=== PATIENT | female | born 1950 | race Caucasian/White ===

== ENCOUNTER 2017-12-09 18:21 | Inpatient (IN) | payer MEDICARE ==
[~2017-12-09] VITALS: Ht 165.1 cm; Wt 95.5 kg
[~2017-12-09 18:21] MED LIST: ONDA4TAB12 PO
[2017-12-09] MEDS ORDERED: furosemide 10 MG/1 ML 10ml inj IV ONE (18:35)
[2017-12-09] MEDS ORDERED: nitroGLYCERIN 0.4mg/hour patch TD ONE (18:35)
[2017-12-09] MEDS ORDERED: albuterol 2.5 MG/3 ML nebule CONTNEB PRN (18:35)
[2017-12-09 19:21] LABS: ABG BASE EXCESS 5.1 mmol/L (-2.0-3.0); ABG HCO3 27.1 mmol/L (22.0-26.0); ABG OXYGEN SATURATION 98.4 % (95-98); ABG PCO2 (T) 30.8 mmHg (32.0-45.0); ABG PH (T) 7.559 (7.350-7.450); ABG PO2 (T) 125.8 mmHg (83-108); ALLEN'S TEST Positive; FCOHb 0.5 % (0.5-1.5); FLOW 4 L/min; FO2Hb 97.9 % (94-100); PATIENT TEMPERATURE 36.3; RESPIRATORY RATE (OBSERVED) 20 b/min; TOTAL HEMOGLOBIN 13.1 G/dl (12.0-16.0)
[2017-12-09 19:22] LABS: BASOPHILS % (AUTO) 0.3 % (0-1); EOSINOPHILS # (AUTO) 0.1 X10'3 (0-0.9); EOSINOPHILS % (AUTO) 0.8 % (0-6); HEMATOCRIT 35.8 % (35.0-45.0); HEMOGLOBIN 12.5 g/dl (12.0-16.0); LYMPHOCYTES # (AUTO) 3.1 X10'3 (1.1-4.8); LYMPHOCYTES % (AUTO) 24.5 % (21-51); MEAN CORPUSCULAR HEMOGLOBIN 31.7 PG (27.0-31.0); MEAN CORPUSCULAR VOLUME 90.8 FL (78-98); MEAN PLATELET VOLUME 8.1 FL (7.4-10.4); MONOCYTES # (AUTO) 0.6 X10'3 (0-0.9); MONOCYTES % (AUTO) 5.2 % (2-12); NEUTROPHILS # (AUTO) 8.7 X10'3 (1.8-7.7); NEUTROPHILS % (AUTO) 69.2 % (42-75); PLATELET COUNT 330 X10'3 (140-440); RED BLOOD COUNT 3.94 X10'6 (4.20-5.60); RED CELL DISTRIBUTION WIDTH 13.9 % (11.5-14.5); WHITE BLOOD COUNT 12.5 X10'3 (4.5-11.0)
[2017-12-09 19:34] LABS: PARTIAL THROMBOPLASTIN TIME 23 SECONDS (22-32); PROTHROMBIN TIME 10.1 SECONDS (9.0-12.0)
[2017-12-09 19:48] LABS: ALANINE AMINOTRANSFERASE 56 U/L (12-78); ALBUMIN 3.3 G/DL (3.4-5.0); ALBUMIN/GLOBULIN RATIO 0.8 (1.1-1.5); ALKALINE PHOSPHATASE 143 IU/L (46-116); ANION GAP 13 (8-16); ASPARTATE AMINO TRANSFERASE 24 U/L (10-37); BILIRUBIN,TOTAL 0.4 MG/DL (0.1-1.0); BLOOD UREA NITROGEN 29 MG/DL (7-18); BUN/CREATININE RATIO 26.4 (6.6-38.0); CALCIUM 10.6 MG/DL (8.5-10.1); CHLORIDE 98 MMOL/L (99-107); GLUCOSE 185 MG/DL (70-104); SODIUM 139 MMOL/L (135-145); TOTAL CARBON DIOXIDE 28.2 MMOL/L (24-32); TOTAL PROTEIN 7.2 G/DL (6.4-8.2); eGFR 49 ML/MIN
[2017-12-09 19:52] LABS: POTASSIUM 2.4 MMOL/L (3.5-5.1)
[2017-12-09] MEDS ORDERED: azithromycin 250mg tablet PO ONE (20:00)
[2017-12-09] MEDS ORDERED: CefTRIAXone 2gm/NS 100ml IVPB 100 ML IV ONE (20:00)
[2017-12-09] MEDS ORDERED: magnesium 4gm in 100ml NS 100 ML IV PRN (21:50)
[2017-12-09] MEDS ORDERED: acetaminophen 325mg tablet PO PRN (21:50)
[2017-12-09] MEDS ORDERED: potassium Cl 40MEQ/NS 500ml 500 ML IV PRN ×2 (21:50)
[2017-12-09] MEDS ORDERED: magnesium Cl slow-release 64mg tablet PO PRN (21:50)
[2017-12-09] MEDS ORDERED: magnesium 2GM in 50ml NS 50 ML IV PRN (21:50)
[2017-12-09] MEDS ORDERED: ondansetron/PF 4mg/2ml inj IV PRN (21:50)
[2017-12-09] MEDS ORDERED: dextrose 50%-water 50ml dispensing syringe IV PRN ×2 (21:55)
[2017-12-09] MEDS ORDERED: dextrose ORAL solution 15 GM/59 ML bottle PO PRN ×2 (21:55)
[2017-12-09] MEDS ORDERED: MESSAGE TO PHARMACY PO ONE (21:55)
[2017-12-09] MEDS ORDERED: glucagon, human recombinant 1mg kit SUBCUT PRN (21:55)
[2017-12-09 22:18] LABS: CLARITY,URINE CLEAR (Clear); COLOR,URINE STRAW (Yellow); GLUCOSE, URINE NEGATIVE (Neg); KETONES,URINE NEGATIVE (Neg); LEUKOCYTE ESTERASE ,URINE NEGATIVE (Neg); NITRITES, URINE NEGATIVE (Neg); OCCULT BLOOD,URINE TRACE-LYSED (Neg); PH,URINE 7.5 (4.8-8.0); PROTEIN,URINE NEGATIVE (Neg); UROBILINOGEN,URINE 0.2 E.U/dL (0.2-1.0)
[2017-12-09 22:20] LABS: UA COLLECTION TYPE FOLEY CATH
[2017-12-09 22:26] LABS: AMORPHOUS PHOSPHATES 1+; BACTERIA,URINE NONE SEEN /HPF (Neg); MUCUS STRANDS NONE SEEN /LPF (Neg); RBC,URINE 0-2 /HPF (0-2); SQUAMOUS EPITHELIAL CELL,UR MODERATE /LPF (FEW); WBC,URINE 0-4 /HPF (0-4)
[2017-12-09] MEDS: traZODone 50mg tablet PO SCH (22:32)
[2017-12-09] MEDS: clonazePAM 0.5mg tablet PO SCH (22:32)
[2017-12-09] MEDS ORDERED: potassium 10mEq/100ml NS w/LIDOcaine (10mg/bag) IV ONE (22:45)
[2017-12-09] MEDS ORDERED: magnesium 2GM in 50ml NS 50 ML IV ONE (22:45)
[2017-12-09] MEDS ORDERED: potassium Cl 20 mEq SR tablet PO ONE (22:45)
[2017-12-09 23:14] LABS: MAGNESIUM 1.7 MG/DL (1.5-2.4)
[2017-12-09] MEDS: ipratropium/albuterol 3ml nebule NEB PRN (23:34)
[2017-12-10 02:00] VITALS: BP 136/89
[2017-12-10] MEDS: potassium Cl 20 mEq SR tablet PO PRN ×4 (04:15→20:15)
[2017-12-10 05:00] VITALS: BP 110/56
[2017-12-10] MEDS: clonazePAM 0.5mg tablet PO SCH (06:57)
[2017-12-10] MEDS ORDERED: azithromycin 250mg tablet PO SCH (08:00)
[2017-12-10] MEDS: K and/or MAG REPLACEMENT MC SCH (08:00)
[2017-12-10 10:00] VITALS: BP 113/50
[2017-12-10] MEDS: oxybutynin 5mg tablet PO SCH ×2 (10:03→20:16)
[2017-12-10] MEDS: heparin, porcine 5000 units/ml vial SQ SCH ×2 (10:04→20:17)
[2017-12-10] MEDS: insulin Lispro (HumaLOG) vial - multi-dose SQ SCH ×3 (10:07→19:14)
[2017-12-10 10:36] LABS: BASOPHILS % (AUTO) 0.3 % (0-1); EOSINOPHILS # (AUTO) 0.2 X10'3 (0-0.9); EOSINOPHILS % (AUTO) 1.4 % (0-6); HEMATOCRIT 32.8 % (35.0-45.0); HEMOGLOBIN 11.4 g/dl (12.0-16.0); LYMPHOCYTES # (AUTO) 1.8 X10'3 (1.1-4.8); LYMPHOCYTES % (AUTO) 14.7 % (21-51); MEAN CORPUSCULAR HEMOGLOBIN 31.2 PG (27.0-31.0); MEAN CORPUSCULAR HGB CONC 34.7 % (33.0-36.5); MONOCYTES # (AUTO) 0.7 X10'3 (0-0.9); MONOCYTES % (AUTO) 5.4 % (2-12); NEUTROPHILS # (AUTO) 9.4 X10'3 (1.8-7.7); NEUTROPHILS % (AUTO) 78.2 % (42-75); PLATELET COUNT 314 X10'3 (140-440); RED BLOOD COUNT 3.64 X10'6 (4.20-5.60); RED CELL DISTRIBUTION WIDTH 14.5 % (11.5-14.5)
[2017-12-10 10:53] LABS: ALBUMIN 3.1 G/DL (3.4-5.0); ANION GAP 13 (8-16); BLOOD UREA NITROGEN 28 MG/DL (7-18); BUN/CREATININE RATIO 22.2 (6.6-38.0); CALCIUM 10.1 MG/DL (8.5-10.1); CHLORIDE 98 MMOL/L (99-107); CREATININE 1.26 MG/DL (0.40-0.90); GLUCOSE 288 MG/DL (70-104); MAGNESIUM 2.2 MG/DL (1.5-2.4); SODIUM 139 MMOL/L (135-145); TOTAL CARBON DIOXIDE 28.2 MMOL/L (24-32); eGFR 42 ML/MIN
[2017-12-10 10:55] LABS: POTASSIUM 2.9 MMOL/L (3.5-5.1)
[2017-12-10] MEDS ORDERED: OXYB5TAB11 PO (12:29)
[2017-12-10] MEDS ORDERED: SERT100T PO (12:29)
[2017-12-10] MEDS ORDERED: FURO-150 PO (12:29)
[2017-12-10] MEDS ORDERED: CLOP75TA35 PO (12:30)
[2017-12-10] MEDS ORDERED: FAMO20TA8 PO (12:31)
[2017-12-10] MEDS ORDERED: ROPI1TAB2 PO (12:34)
[2017-12-10] MEDS ORDERED: PRAV40TA3 PO (12:34)
[2017-12-10] MEDS ORDERED: ZAR2.5T PO (12:35)
[2017-12-10] MEDS ORDERED: MAGN400C PO (12:37)
[2017-12-10] MEDS ORDERED: POTA2VIA5 (12:38)
[2017-12-10] MEDS ORDERED: ZIPR40CA2 PO (12:39)
[2017-12-10] MEDS ORDERED: METF500T3 PO (12:40)
[2017-12-10] MEDS ORDERED: CLON-527 PO (12:41)
[2017-12-10] MEDS: acetaminophen 325mg tablet PO PRN (17:13)
[2017-12-10 18:00] VITALS: BP 117/62
[2017-12-10] MEDS: budesonide 0.5mg/2ml UD nebule IH SCH (19:41)
[2017-12-10] MEDS: ipratropium/albuterol 3ml nebule NEB PRN (19:41)
[2017-12-10] MEDS: ziprasidone 20mg capsule PO SCH (20:16)
[2017-12-10] MEDS: clonazePAM 1mg tablet PO SCH (20:16)
[2017-12-10] MEDS: traZODone 50mg tablet PO SCH (20:16)
[2017-12-10] MEDS ORDERED: atorvastatin 10mg tablet PO SCH (21:00)
[2017-12-10] MEDS ORDERED: insulin glargine (Lantus) pen - multi-dose SQ SCH (21:00)
[2017-12-10] MEDS ORDERED: ROPINIRole 1mg tablet PO SCH (21:00)
[2017-12-10 22:00] VITALS: BP 115/58
[2017-12-10] MEDS: levoFLOXACIN 500mg tablet PO SCH ×2 (22:00→22:26)
[2017-12-11] MEDS: acetaminophen 325mg tablet PO PRN ×2 (01:37→12:24)
[2017-12-11 05:00] VITALS: BP_SYST 152; BP_SYST 96; BP_DIAS 47; BP_DIAS 59
[2017-12-11 06:42] LABS: BASOPHILS % (AUTO) 0.3 % (0-1); EOSINOPHILS # (AUTO) 0.1 X10'3 (0-0.9); HEMATOCRIT 34.7 % (35.0-45.0); HEMOGLOBIN 12.3 g/dl (12.0-16.0); LYMPHOCYTES # (AUTO) 2.5 X10'3 (1.1-4.8); LYMPHOCYTES % (AUTO) 25.3 % (21-51); MEAN CORPUSCULAR HEMOGLOBIN 31.9 PG (27.0-31.0); MEAN CORPUSCULAR HGB CONC 35.3 % (33.0-36.5); MEAN CORPUSCULAR VOLUME 90.2 FL (78-98); MEAN PLATELET VOLUME 7.8 FL (7.4-10.4); MONOCYTES # (AUTO) 0.7 X10'3 (0-0.9); MONOCYTES % (AUTO) 7.2 % (2-12); NEUTROPHILS # (AUTO) 6.6 X10'3 (1.8-7.7); NEUTROPHILS % (AUTO) 66.2 % (42-75); PLATELET COUNT 314 X10'3 (140-440); RED BLOOD COUNT 3.85 X10'6 (4.20-5.60); RED CELL DISTRIBUTION WIDTH 14.4 % (11.5-14.5); WHITE BLOOD COUNT 9.9 X10'3 (4.5-11.0)
[2017-12-11 07:07] LABS: ALBUMIN 3.1 G/DL (3.4-5.0); ANION GAP 10 (8-16); BLOOD UREA NITROGEN 18 MG/DL (7-18); BUN/CREATININE RATIO 17.5 (6.6-38.0); CALCIUM 10.1 MG/DL (8.5-10.1); CHLORIDE 102 MMOL/L (99-107); CREATININE 1.03 MG/DL (0.40-0.90); GLUCOSE 133 MG/DL (70-104); MAGNESIUM 2.2 MG/DL (1.5-2.4); SODIUM 141 MMOL/L (135-145); TOTAL CARBON DIOXIDE 29.2 MMOL/L (24-32); eGFR 53 ML/MIN
[2017-12-11] MEDS: K and/or MAG REPLACEMENT MC SCH (07:33)
[2017-12-11] MEDS: potassium Cl 20 mEq SR tablet PO PRN ×2 (07:46→12:24)
[2017-12-11] MEDS: ziprasidone 20mg capsule PO SCH (07:47)
[2017-12-11] MEDS: clonazePAM 1mg tablet PO SCH (07:47)
[2017-12-11] MEDS: oxybutynin 5mg tablet PO SCH (07:47)
[2017-12-11] MEDS: heparin, porcine 5000 units/ml vial SQ SCH (07:47)
[2017-12-11] MEDS ORDERED: famotidine 20mg tablet PO SCH (08:00)
[2017-12-11] MEDS ORDERED: sertraline 50mg tablet PO SCH (08:00)
[2017-12-11] MEDS ORDERED: magnesium oxide 400mg tablet PO SCH (08:00)
[2017-12-11] MEDS ORDERED: clopidogrel 75mg tablet PO SCH (08:00)
[2017-12-11] MEDS: insulin Lispro (HumaLOG) vial - multi-dose SQ SCH ×2 (09:04→13:44)
[2017-12-11 10:00] VITALS: BP 137/65
[2017-12-11] MEDS ORDERED: acyclovir 5% 2 GM cream TP SCH (13:00)
[2017-12-11] MEDS ORDERED: acyclovir 5% ointment 5gm TP SCH (13:00)
[2017-12-11] MEDS ORDERED: FURO-150 PO (13:25)
[2017-12-11] MEDS ORDERED: POTA20TA10 PO (13:25)
[2017-12-11] MEDS ORDERED: METF500T4 PO (13:25)
[2017-12-11] MEDS ORDERED: ACYC15OI7 TP (13:25)
[2017-12-11] MEDS ORDERED: AZI25OT PO (13:27)
[2017-12-11] MEDS: budesonide 0.5mg/2ml UD nebule IH SCH (13:34)
== END 2017-12-11 15:31 | disposition home or self-care (01) | DRG 872 ==
LOC: ER 18:21 → ED HOLD 21:50 → ORTHO 4S 12-10 02:06
PROVIDERS: ADMIT Family Medicine; ATTEND Internal Medicine
DX: A41.9 Sepsis, unspecified organism (principal); E87.4 Mixed disorder of acid-base balance; I50.9 Heart failure, unspecified; E11.65 Type 2 diabetes mellitus with hyperglycemia; Z99.81 Dependence on supplemental oxygen; J44.1 Chronic obstructive pulmonary disease with (acute) exacerbation; J44.0 Chronic obstructive pulmonary disease with (acute) lower respiratory infection; J20.9 Acute bronchitis, unspecified; E87.6 Hypokalemia; E78.5 Hyperlipidemia, unspecified; F31.9 Bipolar disorder, unspecified; N28.9 Disorder of kidney and ureter, unspecified; R91.1 Solitary pulmonary nodule; E78.00 Pure hypercholesterolemia, unspecified; Z88.0 Allergy status to penicillin; Z87.891 Personal history of nicotine dependence
CPT/HCPCS: 36415; 36600; 71045; 71250; 80048; 80053; 81001; 82803; 82948; 83036; 83605; 83735; 83880; 84132; 84484; 85018; 85025; 85610; 85730; 87040; 87070; 87502; 87503; 92616; 93005; 94640; 94760; 96374; 97116; 97162; 97530; 99285; A4315; A6449; J0696; J1644; J1815; J1940; J3475; J3480; J7626

== ENCOUNTER 2017-12-14 12:45 | Emergency (ER) | payer MEDICARE ==
[~2017-12-14] VITALS: Ht 165.1 cm; Wt 95.5 kg
[~2017-12-14 12:45] MED LIST changes: +ACYC15OI7 TP; +AZI25OT PO; +CLON-527 PO; +CLOP75TA35 PO; +FAMO20TA8 PO; +FURO-150 PO; +MAGN400C PO; +METF500T4 PO; -ONDA4TAB12 PO; +OXYB5TAB11 PO; +POTA20TA10 PO; +PRAV40TA3 PO; +ROPI1TAB2 PO; +SERT100T PO; +ZIPR40CA2 PO
[2017-12-14 15:05] VITALS: BP 152/82
== END 2017-12-14 15:07 | disposition home or self-care (01) ==
LOC: ER 12:45
DX: R06.02 Shortness of breath (principal); Z88.0 Allergy status to penicillin; J44.9 Chronic obstructive pulmonary disease, unspecified; E11.9 Type 2 diabetes mellitus without complications; E78.00 Pure hypercholesterolemia, unspecified; Z79.84 Long term (current) use of oral hypoglycemic drugs; Z79.899 Other long term (current) drug therapy; Z60.2 Problems related to living alone
CPT/HCPCS: 71045; 93005; 99284

== ENCOUNTER 2018-03-05 09:03 | Emergency (ER) | payer MEDICARE ==
[~2018-03-05] VITALS: Ht 565.3 cm; Wt 100.0 kg
[~2018-03-05 09:03] MED LIST changes: -ACYC15OI7 TP; -AZI25OT PO; +DESV50TA20; +DOCU-28 PO; -FURO-150 PO; -MAGN400C PO; +METF1000 PO; -METF500T4 PO; -POTA20TA10 PO; +PRAM0.253 PO; +TRAZ-146 PO; -ZIPR40CA2 PO
[2018-03-05] MEDS ORDERED: IBUP-1984 PO (09:57)
== END 2018-03-05 10:08 | disposition home or self-care (01) ==
LOC: ER 09:03
DX: M79.601 Pain in right arm (principal); E78.00 Pure hypercholesterolemia, unspecified; J44.9 Chronic obstructive pulmonary disease, unspecified; E11.9 Type 2 diabetes mellitus without complications; I50.9 Heart failure, unspecified; Z60.2 Problems related to living alone; Z88.0 Allergy status to penicillin; Z79.84 Long term (current) use of oral hypoglycemic drugs; Z79.899 Other long term (current) drug therapy
CPT/HCPCS: 73080; 73110; 99284

== ENCOUNTER 2018-09-25 13:08 | Emergency (ER) | payer MEDICARE ==
[~2018-09-25] VITALS: Ht 165.1 cm; Wt 104.5 kg
[~2018-09-25 13:08] MED LIST changes: +AZIT250T2 PO; +SULF1TAB49 PO; +TAM75C PO; -TRAZ-146 PO; +TRAZ-219 PO
[2018-09-25] MEDS ORDERED: ipratropium/albuterol 3ml nebule NEB ONE (13:20)
[2018-09-25] MEDS ORDERED: LORazepam 1 MG tablet PO ONE (13:20)
[2018-09-25 13:30] LABS: BASOPHILS # (AUTO) 0.1 X10'3 (0-0.2); BASOPHILS % (AUTO) 0.6 % (0-1); EOSINOPHILS # (AUTO) 0.1 X10'3 (0-0.9); EOSINOPHILS % (AUTO) 1.2 % (0-6); HEMATOCRIT 42.6 % (35.0-45.0); HEMOGLOBIN 13.9 g/dl (12.0-16.0); LYMPHOCYTES # (AUTO) 1.7 X10'3 (1.1-4.8); LYMPHOCYTES % (AUTO) 15.7 % (21-51); MEAN CORPUSCULAR HEMOGLOBIN 29.9 PG (27.0-31.0); MEAN CORPUSCULAR HGB CONC 32.6 % (33.0-36.5); MEAN CORPUSCULAR VOLUME 91.5 FL (78-98); MEAN PLATELET VOLUME 7.7 FL (7.4-10.4); MONOCYTES # (AUTO) 0.6 X10'3 (0-0.9); MONOCYTES % (AUTO) 5.7 % (2-12); NEUTROPHILS # (AUTO) 8.4 X10'3 (1.8-7.7); NEUTROPHILS % (AUTO) 76.8 % (42-75); PLATELET COUNT 379 X10'3 (140-440); RED BLOOD COUNT 4.65 X10'6 (4.20-5.60); RED CELL DISTRIBUTION WIDTH 14.6 % (11.5-14.5)
[2018-09-25 13:51] LABS: ALANINE AMINOTRANSFERASE 57 U/L (12-78); ALBUMIN 3.6 G/DL (3.4-5.0); ALBUMIN/GLOBULIN RATIO 0.9 (1.1-1.5); ALKALINE PHOSPHATASE 191 IU/L (46-116); ANION GAP 12 (8-16); ASPARTATE AMINO TRANSFERASE 13 U/L (10-37); BILIRUBIN,TOTAL 0.2 MG/DL (0.1-1.0); BLOOD UREA NITROGEN 17 MG/DL (7-18); BUN/CREATININE RATIO 14.7 (6.6-38.0); CALCIUM 10.2 MG/DL (8.5-10.1); CHLORIDE 103 MMOL/L (99-107); CREATININE 1.16 MG/DL (0.40-0.90); GLUCOSE 104 MG/DL (70-104); POTASSIUM 4.8 MMOL/L (3.5-5.1); SODIUM 139 MMOL/L (135-145); TOTAL CARBON DIOXIDE 24.4 MMOL/L (24-32); TOTAL PROTEIN 7.5 G/DL (6.4-8.2); eGFR 46 ML/MIN
[2018-09-25 13:55] LABS: PARTIAL THROMBOPLASTIN TIME 23 SECONDS (22-32); PROTHROMBIN TIME 10.1 SECONDS (9.0-12.0)
[2018-09-25 13:59] LABS: MAGNESIUM 2.3 MG/DL (1.5-2.4); TROPONIN I < 0.04 NG/ML (0.0-0.05)
[2018-09-25 14:31] LABS: CLARITY,URINE CLEAR (Clear); COLOR,URINE YELLOW (Yellow); GLUCOSE, URINE NEGATIVE (Neg); KETONES,URINE NEGATIVE (Neg); LEUKOCYTE ESTERASE ,URINE NEGATIVE (Neg); NITRITES, URINE NEGATIVE (Neg); OCCULT BLOOD,URINE NEGATIVE (Neg); PROTEIN,URINE NEGATIVE (Neg); UA COLLECTION TYPE STRAIGHT CATH; UROBILINOGEN,URINE 0.2 E.U/dL (0.2-1.0)
[2018-09-25 15:53] VITALS: BP 133/83
== END 2018-09-25 16:54 | disposition home or self-care (01) ==
LOC: ER 13:08
DX: J44.1 Chronic obstructive pulmonary disease with (acute) exacerbation (principal); F41.9 Anxiety disorder, unspecified; I50.9 Heart failure, unspecified; E78.00 Pure hypercholesterolemia, unspecified; E11.9 Type 2 diabetes mellitus without complications; Z98.890 Other specified postprocedural states; Z60.2 Problems related to living alone; Z88.0 Allergy status to penicillin; Z79.01 Long term (current) use of anticoagulants; Z79.2 Long term (current) use of antibiotics; Z79.899 Other long term (current) drug therapy
CPT/HCPCS: 36415; 71045; 80053; 81003; 83605; 83735; 83880; 84145; 84484; 85025; 85610; 85730; 87040; 87502; 87503; 93005; 94640; 94760; 99284

== ENCOUNTER 2019-02-20 17:55 | Emergency (ER) | payer MEDICARE ==
[~2019-02-20] VITALS: Ht 165.1 cm; Wt 113.2 kg
[~2019-02-20 17:55] MED LIST changes: -AZIT250T2 PO; -SULF1TAB49 PO; -TAM75C PO
[2019-02-20] MEDS ORDERED: LORazepam 0.5 MG tablet PO STA (18:12)
[2019-02-20] MEDS ORDERED: albuterol 2.5 MG/3 ML nebule NEB ONE (18:15)
[2019-02-20] MEDS ORDERED: ipratropium/albuterol 3ml nebule NEB ONE (18:15)
[2019-02-20 18:41] LABS: BASOPHILS # (AUTO) 0.1 X10'3 (0-0.2); EOSINOPHILS % (AUTO) 0.3 % (0-6); HEMATOCRIT 39.3 % (35.0-45.0); HEMOGLOBIN 13.2 g/dl (12.0-16.0); LYMPHOCYTES # (AUTO) 1.7 X10'3 (1.1-4.8); LYMPHOCYTES % (AUTO) 15.9 % (21-51); MEAN CORPUSCULAR HEMOGLOBIN 30.8 PG (27.0-31.0); MEAN CORPUSCULAR HGB CONC 33.6 g/dL (33.0-36.5); MEAN CORPUSCULAR VOLUME 91.4 FL (78-98); MEAN PLATELET VOLUME 7.7 FL (7.4-10.4); MONOCYTES # (AUTO) 0.6 X10'3 (0-0.9); NEUTROPHILS # (AUTO) 8.1 X10'3 (1.8-7.7); NEUTROPHILS % (AUTO) 76.8 % (42-75); PLATELET COUNT 291 X10'3 (140-440); RED CELL DISTRIBUTION WIDTH 13.3 % (11.5-14.5); WHITE BLOOD COUNT 10.5 X10'3 (4.5-11.0)
[2019-02-20 18:52] LABS: ALANINE AMINOTRANSFERASE 30 U/L (12-78); ALBUMIN 3.3 G/DL (3.4-5.0); ALBUMIN/GLOBULIN RATIO 0.9 (1.1-1.5); ALKALINE PHOSPHATASE 132 IU/L (46-116); ANION GAP 5 (8-16); ASPARTATE AMINO TRANSFERASE 13 U/L (10-37); BILIRUBIN,TOTAL 0.3 MG/DL (0.1-1.0); BLOOD UREA NITROGEN 19 MG/DL (7-18); CALCIUM 9.5 MG/DL (8.5-10.1); CHLORIDE 105 MMOL/L (99-107); CREATININE 1.19 MG/DL (0.40-0.90); GLUCOSE 129 MG/DL (70-104); POTASSIUM 3.6 MMOL/L (3.5-5.1); SODIUM 141 MMOL/L (135-145); TOTAL CARBON DIOXIDE 30.9 MMOL/L (24-32); TOTAL PROTEIN 7.1 G/DL (6.4-8.2); eGFR 45 ML/MIN
[2019-02-20 18:59] LABS: MAGNESIUM 1.9 MG/DL (1.5-2.4)
--- NOTE | 2019-02-20 20:19 | NUR ---
[facility] CAB CONTACTED I LEFT A MESSAGE TO RETURN MY CALL,
[2019-02-20 20:41] VITALS: BP 114/67
== END 2019-02-20 20:44 | disposition home or self-care (01) ==
LOC: ER 17:56
DX: J44.9 Chronic obstructive pulmonary disease, unspecified (principal); F41.9 Anxiety disorder, unspecified; I50.9 Heart failure, unspecified; E78.00 Pure hypercholesterolemia, unspecified; E11.9 Type 2 diabetes mellitus without complications; G89.29 Other chronic pain; Z60.2 Problems related to living alone; Z88.0 Allergy status to penicillin; Z79.84 Long term (current) use of oral hypoglycemic drugs; Z79.899 Other long term (current) drug therapy
CPT/HCPCS: 36415; 71045; 80053; 83735; 83880; 84484; 85025; 85610; 93005; 94640; 94760; 99284

== ENCOUNTER 2019-07-13 13:53 | Inpatient (IN) | payer MEDICARE ==
[~2019-07-13] VITALS: Ht 165.1 cm; Wt 111.0 kg
[~2019-07-13 13:53] MED LIST changes: -OXYB5TAB11 PO; +OXYB5TAB16 PO
[2019-07-13] MEDS ORDERED: methylPREDNISolone sod succ 125mg/2ml vial IV ONE (14:40)
[2019-07-13] MEDS ORDERED: levoFLOXACIN-Levaquin 750MG/D5 150 ML IV ONE (14:40)
[2019-07-13] MEDS ORDERED: ipratropium/albuterol 3ml nebule NEB ONE (14:40)
[2019-07-13 14:56] LABS: BASOPHILS # (AUTO) 0.1 X10'3 (0-0.2); BASOPHILS % (AUTO) 1.1 % (0-1); EOSINOPHILS # (AUTO) 0.2 X10'3 (0-0.9); HEMATOCRIT 42.2 % (35.0-45.0); HEMOGLOBIN 14.2 g/dl (12.0-16.0); LYMPHOCYTES # (AUTO) 2.2 X10'3 (1.1-4.8); LYMPHOCYTES % (AUTO) 19.6 % (21-51); MEAN CORPUSCULAR HEMOGLOBIN 31.4 PG (27.0-31.0); MEAN CORPUSCULAR HGB CONC 33.6 g/dL (33.0-36.5); MEAN CORPUSCULAR VOLUME 93.6 FL (78-98); MEAN PLATELET VOLUME 8.1 FL (7.4-10.4); MONOCYTES # (AUTO) 0.6 X10'3 (0-0.9); MONOCYTES % (AUTO) 5.8 % (2-12); NEUTROPHILS # (AUTO) 7.9 X10'3 (1.8-7.7); NEUTROPHILS % (AUTO) 71.5 % (42-75); PLATELET COUNT 284 X10'3 (140-440); RED CELL DISTRIBUTION WIDTH 13.6 % (11.5-14.5); WHITE BLOOD COUNT 11.1 X10'3 (4.5-11.0)
[2019-07-13 15:05] LABS: PARTIAL THROMBOPLASTIN TIME 26 SECONDS (22-32)
[2019-07-13 15:16] LABS: ALANINE AMINOTRANSFERASE 64 U/L (12-78); ALBUMIN 3.6 G/DL (3.4-5.0); ALBUMIN/GLOBULIN RATIO 0.9 (1.1-1.5); ALKALINE PHOSPHATASE 184 IU/L (46-116); ANION GAP 7 (8-16); ASPARTATE AMINO TRANSFERASE 19 U/L (10-37); BILIRUBIN,TOTAL 0.4 MG/DL (0.1-1.0); BLOOD UREA NITROGEN 21 MG/DL (7-18); BUN/CREATININE RATIO 18.8 (6.6-38.0); CALCIUM 10.1 MG/DL (8.5-10.1); CHLORIDE 105 MMOL/L (99-107); CREATININE 1.12 MG/DL (0.40-0.90); GLUCOSE 127 MG/DL (70-104); LIPASE 136 U/L (73-393); POTASSIUM 4.2 MMOL/L (3.5-5.1); SODIUM 140 MMOL/L (135-145); TOTAL CARBON DIOXIDE 27.7 MMOL/L (24-32); TOTAL PROTEIN 7.7 G/DL (6.4-8.2); eGFR 48 ML/MIN
[2019-07-13 16:15] LABS: CLARITY,URINE SLIGHTLY CLOUDY (Clear); COLOR,URINE YELLOW (Yellow); GLUCOSE, URINE NEGATIVE (Neg); KETONES,URINE NEGATIVE (Neg); LEUKOCYTE ESTERASE ,URINE NEGATIVE (Neg); NITRITES, URINE NEGATIVE (Neg); OCCULT BLOOD,URINE NEGATIVE (Neg); PH,URINE 5.5 (4.8-8.0); PROTEIN,URINE NEGATIVE (Neg); UROBILINOGEN,URINE 0.2 E.U/dL (0.2-1.0)
[2019-07-13] MEDS ORDERED: ipratropium/albuterol 3ml nebule NEB PRN (16:15)
[2019-07-13] MEDS ORDERED: potassium Cl 20 mEq SR tablet PO PRN ×2 (16:15)
[2019-07-13] MEDS ORDERED: HYDROcodone/acetaminophen 5mg/325mg tablet PO PRN (16:15)
[2019-07-13] MEDS ORDERED: acetaminophen 325mg tablet PO PRN (16:15)
[2019-07-13] MEDS ORDERED: magnesium 4gm in 100ml NS 100 ML IV PRN (16:15)
[2019-07-13] MEDS ORDERED: mag hydrox/Alum hydrox/simeth 30ml oral suspension PO PRN (16:15)
[2019-07-13] MEDS ORDERED: potassium CL 10mEq/100ml bag 100 ML IV PRN ×2 (16:15)
[2019-07-13] MEDS ORDERED: bisacodyl 10mg suppository rectal RC PRN (16:15)
[2019-07-13] MEDS ORDERED: magnesium hydroxide 30ml (MOM) UD suspension PO PRN (16:15)
[2019-07-13] MEDS ORDERED: HYDROcodone/acetaminophen 10/325mg tab PO PRN (16:15)
[2019-07-13] MEDS ORDERED: magnesium Cl slow-release 64mg tablet PO PRN (16:15)
[2019-07-13] MEDS ORDERED: magnesium 2GM in 50ml NS 50 ML IV PRN (16:15)
[2019-07-13] MEDS ORDERED: ondansetron/PF 4mg/2ml inj IV PRN (16:15)
[2019-07-13] MEDS ORDERED: metoclopramide 5 mg/ml inj IV PRN (16:15)
[2019-07-13] MEDS ORDERED: ringers solution, lacted 1,000 ML IV SCH (16:25)
[2019-07-13 16:38] LABS: UA COLLECTION TYPE STRAIGHT CATH
[2019-07-13 16:47] LABS: BACTERIA,URINE NONE SEEN /HPF (Neg); MUCUS STRANDS MODERATE /LPF (Neg); RBC,URINE NONE SEEN /HPF (0-2); SQUAMOUS EPITHELIAL CELL,UR FEW /LPF (FEW); WBC,URINE 0-4 /HPF (0-4)
[2019-07-13] MEDS ORDERED: LORA10TA7 PO (16:55)
[2019-07-13] MEDS ORDERED: FURO80TA3 PO (16:58)
[2019-07-13] MEDS ORDERED: METF-950 PO (16:58)
[2019-07-13] MEDS ORDERED: MAGN400T52 PO (16:58)
[2019-07-13] MEDS ORDERED: LISI-604 PO (17:03)
[2019-07-13] MEDS ORDERED: CLON0.5T4 PO (17:03)
[2019-07-13] MEDS ORDERED: PRAM0.258 PO (17:03)
[2019-07-13] MEDS ORDERED: ZIPR40CA14 PO (17:03)
--- NOTE | 2019-07-13 17:30 | NUR ---
PT GIVEN HOSPITAL BED FOR COMFORT. PT WANTED TO GO HOME BECAUSE SHE MAY NOT GET A ROOM TONIGHT AND THERE IS NO TV IN THE ER ROOMS. DR GALLEGOS TALKS TO PT TO DISCUSS STAYING. PT FINALLY AGREES TO STAY IF WE GET HER A HOSPITAL BED RIGHT AWAY.
--- NOTE | 2019-07-13 17:55 | NUR ---
DR AVA GUILLORY IN ROOM TO DEBRA PT. PT BROUGHT HER MEDICATIONS WITH HER IN A BAG. TAKE THE BAG OF MEDICATIONS TO PHARMACY TO HOLD WHILE IN THE HOSPITAL. MED LIST PLACED ON CHART.
[2019-07-13] MEDS ORDERED: glucagon, human recombinant 1mg kit SUBCUT PRN (18:40)
[2019-07-13] MEDS ORDERED: MESSAGE TO PHARMACY PO ONE (18:40)
[2019-07-13] MEDS ORDERED: dextrose ORAL solution 15 GM/59 ML bottle PO PRN ×2 (18:40)
[2019-07-13] MEDS ORDERED: dextrose 50%-water 50ml dispensing syringe IV PRN ×2 (18:40)
[2019-07-13] MEDS ORDERED: docusate sod 100mg capsule PO SCH (18:50)
[2019-07-13] MEDS: ipratropium/albuterol 3ml nebule NEB SCH ×2 (19:09→23:19)
[2019-07-13 19:18] LABS: HEMOGLOBIN A1C 6.8 % (4.5-6.2)
[2019-07-13 20:00] VITALS: BP_SYST 107; BP_SYST 113; BP_DIAS 58; BP_DIAS 59
[2019-07-13] MEDS: traZODone 50mg tablet PO SCH (20:45)
[2019-07-13] MEDS: ziprasidone 20mg capsule PO SCH (20:46)
[2019-07-13] MEDS: methylPREDNISolone sod succ 125mg/2ml vial IV SCH (20:46)
[2019-07-13] MEDS: clonazePAM 0.5mg tablet PO SCH (20:46)
[2019-07-13] MEDS: lisinopril 5mg tablet PO SCH (20:46)
[2019-07-13] MEDS: furosemide 40mg/4ml inj IV SCH (20:47)
--- NOTE | 2019-07-13 21:01 | NUR ---
RECEIVED REPORT FROM ER NURSE KENAN KING. WILL ASSUME PATIENT CARE.
[2019-07-13] MEDS: nystatin 15 GM powder TP SCH (22:04)
[2019-07-13] MEDS: pramipexole 0.25mg tablet PO SCH ×2 (22:04→22:50)
[2019-07-13] MEDS: insulin Lispro (HumaLOG) vial - multi-dose SQ SCH (22:23)
[2019-07-13] MEDS: insulin glargine (Lantus) pen - multi-dose SQ SCH (22:26)
[2019-07-14] VITALS: BP 113/59
[2019-07-14] MEDS: pramipexole 0.25mg tablet PO SCH ×3 (00:22→22:08)
--- NOTE | 2019-07-14 00:23 | NUR ---
Patient requesting for more of mirapex for her restless legs. Second dose given according to order, May repeat once.
[2019-07-14] MEDS: temazepam 15mg capsule PO PRN ×2 (01:54→23:45)
[2019-07-14] MEDS: methylPREDNISolone sod succ 125mg/2ml vial IV SCH ×4 (02:48→21:00)
[2019-07-14 07:27] LABS: ALBUMIN 3.5 G/DL (3.4-5.0); ANION GAP 12 (8-16); BLOOD UREA NITROGEN 25 MG/DL (7-18); BUN/CREATININE RATIO 18.7 (6.6-38.0); CALCIUM 10.1 MG/DL (8.5-10.1); CHLORIDE 103 MMOL/L (99-107); CHOL/HDL RATIO 5.2 (0.00-4.99); CHOLESTEROL 308 MG/DL (0-200); CREATININE 1.34 MG/DL (0.40-0.90); GLUCOSE 220 MG/DL (70-104); HDL CHOLESTEROL 59 MG/DL (35-60); LDL CHOLESTEROL 227 MG/DL (50-100); MAGNESIUM 2.1 MG/DL (1.5-2.4); SODIUM 138 MMOL/L (135-145); TOTAL CARBON DIOXIDE 23.3 MMOL/L (24-32); TRIGLYCERIDES 116 MG/DL (20-135); eGFR 39 ML/MIN
[2019-07-14 07:28] LABS: POTASSIUM 4.5 MMOL/L (3.5-5.1)
[2019-07-14 08:00] VITALS: BP 119/51
[2019-07-14] MEDS: K and/or MAG REPLACEMENT MC SCH (08:00)
[2019-07-14] MEDS: ipratropium/albuterol 3ml nebule NEB SCH ×5 (08:00→23:27)
[2019-07-14 08:17] LABS: HEMATOCRIT 41.5 % (35.0-45.0); MEAN CORPUSCULAR HEMOGLOBIN 31.6 PG (27.0-31.0); MEAN CORPUSCULAR HGB CONC 33.8 g/dL (33.0-36.5); MEAN CORPUSCULAR VOLUME 93.6 FL (78-98); MEAN PLATELET VOLUME 8.2 FL (7.4-10.4); PLATELET COUNT 269 X10'3 (140-440); RED BLOOD COUNT 4.43 X10'6 (4.20-5.60); RED CELL DISTRIBUTION WIDTH 13.6 % (11.5-14.5); WHITE BLOOD COUNT 12.3 X10'3 (4.5-11.0)
[2019-07-14 08:49] LABS: H PYLORI ANTIBODY NEGATIVE (Neg)
[2019-07-14] MEDS: clopidogrel 75mg tablet PO SCH (10:22)
[2019-07-14] MEDS: clonazePAM 0.5mg tablet PO SCH ×2 (10:23→20:58)
[2019-07-14] MEDS: sertraline 50mg tablet PO SCH (10:23)
[2019-07-14] MEDS: pantoprazole 40mg Tablet.DR PO SCH (10:23)
[2019-07-14] MEDS: magnesium oxide 400mg tablet PO SCH (10:24)
[2019-07-14] MEDS: loratadine 10mg tablet PO SCH (10:24)
[2019-07-14] MEDS: furosemide 40mg/4ml inj IV SCH ×2 (10:24→20:59)
[2019-07-14] MEDS: famotidine 20mg tablet PO SCH (10:24)
[2019-07-14] MEDS: enoxaparin 40mg/0.4ml syringe SUBCUT SCH (10:25)
[2019-07-14] MEDS: levoFLOXACIN-Levaquin 500mg/D5 100 ML IV SCH (10:25)
[2019-07-14] MEDS: nystatin 15 GM powder TP SCH ×3 (10:31→21:01)
[2019-07-14] MEDS: insulin Lispro (HumaLOG) vial - multi-dose SQ SCH ×4 (10:42→21:03)
[2019-07-14 12:32] VITALS: BP 102/52
--- NOTE | 2019-07-14 16:00 | NUR ---
PT. REQUESTING PUREED DIET.
--- NOTE | 2019-07-14 18:26 | NUR ---
Gave report to Janki KING.
[2019-07-14 20:00] VITALS: BP 115/53
[2019-07-14] MEDS: lactobacillus rhamnosus 10,000 MMU CELLS/CAPSULE PO SCH (20:57)
[2019-07-14] MEDS: acetaminophen 325mg tablet PO PRN (20:58)
[2019-07-14] MEDS: traZODone 50mg tablet PO SCH (20:58)
[2019-07-14] MEDS: ziprasidone 20mg capsule PO SCH (20:59)
[2019-07-14] MEDS: lisinopril 5mg tablet PO SCH (20:59)
[2019-07-14] MEDS: insulin glargine (Lantus) pen - multi-dose SQ SCH (21:04)
[2019-07-15] VITALS: BP 114/61
[2019-07-15] MEDS: methylPREDNISolone sod succ 125mg/2ml vial IV SCH ×2 (01:48→08:15)
--- NOTE | 2019-07-15 06:38 | NUR ---
Patient in room [facility]. I have received report from Janki KING and had the opportunity to ask questions and assume patient care.
[2019-07-15] MEDS: ipratropium/albuterol 3ml nebule NEB SCH ×4 (07:53→18:56)
[2019-07-15 08:00] VITALS: BP 119/52
[2019-07-15] MEDS: K and/or MAG REPLACEMENT MC SCH (08:00)
[2019-07-15] MEDS: furosemide 40mg/4ml inj IV SCH (08:15)
[2019-07-15] MEDS: enoxaparin 40mg/0.4ml syringe SUBCUT SCH (08:16)
[2019-07-15] MEDS: magnesium oxide 400mg tablet PO SCH (08:16)
[2019-07-15] MEDS: nystatin 15 GM powder TP SCH ×2 (08:16→13:15)
[2019-07-15] MEDS: lactobacillus rhamnosus 10,000 MMU CELLS/CAPSULE PO SCH (08:17)
[2019-07-15] MEDS: clopidogrel 75mg tablet PO SCH (08:17)
[2019-07-15] MEDS: loratadine 10mg tablet PO SCH (08:17)
[2019-07-15] MEDS: pantoprazole 40mg Tablet.DR PO SCH (08:17)
[2019-07-15] MEDS: clonazePAM 0.5mg tablet PO SCH (08:17)
[2019-07-15] MEDS: famotidine 20mg tablet PO SCH (08:17)
[2019-07-15] MEDS: sertraline 50mg tablet PO SCH (08:17)
[2019-07-15] MEDS: levoFLOXACIN-Levaquin 500mg/D5 100 ML IV SCH (08:17)
[2019-07-15] MEDS: insulin Lispro (HumaLOG) vial - multi-dose SQ SCH ×3 (09:03→18:28)
[2019-07-15 11:00] VITALS: BP 131/72
[2019-07-15 11:04] LABS: HEMATOCRIT 42.4 % (35.0-45.0); HEMOGLOBIN 13.9 g/dl (12.0-16.0); MEAN CORPUSCULAR HEMOGLOBIN 31.1 PG (27.0-31.0); MEAN CORPUSCULAR HGB CONC 32.8 g/dL (33.0-36.5); MEAN CORPUSCULAR VOLUME 94.6 FL (78-98); MEAN PLATELET VOLUME 8.3 FL (7.4-10.4); PLATELET COUNT 295 X10'3 (140-440); RED BLOOD COUNT 4.48 X10'6 (4.20-5.60)
[2019-07-15 11:21] LABS: ALBUMIN 3.6 G/DL (3.4-5.0); ANION GAP 15 (8-16); BLOOD UREA NITROGEN 44 MG/DL (7-18); BUN/CREATININE RATIO 24.3 (6.6-38.0); CALCIUM 9.8 MG/DL (8.5-10.1); CHLORIDE 100 MMOL/L (99-107); CREATININE 1.81 MG/DL (0.40-0.90); GLUCOSE 351 MG/DL (70-104); POTASSIUM 3.9 MMOL/L (3.5-5.1); SODIUM 136 MMOL/L (135-145); TOTAL CARBON DIOXIDE 20.8 MMOL/L (24-32); eGFR 28 ML/MIN
--- NOTE | 2019-07-15 14:06 | NUR ---
PAGER ID: [phone] MESSAGE: [id number] [place]: Procalcitonin results in <0.05, thanks Tu [id number]
--- NOTE | 2019-07-15 14:56 | NUR ---
PAGER ID: [phone] MESSAGE: [id number] [place]: Pt is getting anxious and wants to know if she can be discharging soon. Thanks Tu [id number]
[2019-07-15] MEDS: acetaminophen 325mg tablet PO PRN (15:50)
[2019-07-15] MEDS ORDERED: LEVO500T2 PO (16:12)
[2019-07-15] MEDS ORDERED: FURO20TA4 PO (16:12)
[2019-07-15] MEDS ORDERED: IPRA3AMP9 NEB (16:12)
--- NOTE | 2019-07-15 18:21 | NUR ---
Problems reprioritized. Patient report given, questions answered & plan of care reviewed with Larry KING.
--- NOTE | 2019-07-15 19:18 | NUR ---
Patient discharge in stable condition, VSS within normal limits, RA, alert and oriented X 4. IV was removed with catheter intact and personal belongings. CHRISTINE Smith reviewed medications and instruction discharge. Pt off unit via wheelchair and driven home by friends.
[2019-07-15] MEDS ORDERED: methylPREDNISolone sod succ 125mg/2ml vial IV SCH (20:00)
[2019-07-16] MEDS ORDERED: levoFLOXACIN-Levaquin 250mg/D5 50 ML IV SCH (08:00)
== END 2019-07-15 19:05 | disposition home or self-care (01) | DRG 189 ==
LOC: ER 13:53 → ED HOLD 16:14 → SUR 3N 21:15
PROVIDERS: ADMIT Family Medicine; ATTEND Internal Medicine
DX: J96.21 Acute and chronic respiratory failure with hypoxia (principal); J44.1 Chronic obstructive pulmonary disease with (acute) exacerbation; J44.0 Chronic obstructive pulmonary disease with (acute) lower respiratory infection; E11.9 Type 2 diabetes mellitus without complications; E78.00 Pure hypercholesterolemia, unspecified; F32.9 Major depressive disorder, single episode, unspecified; G47.33 Obstructive sleep apnea (adult) (pediatric); G89.29 Other chronic pain; I11.0 Hypertensive heart disease with heart failure; I50.9 Heart failure, unspecified; J20.9 Acute bronchitis, unspecified; Z60.2 Problems related to living alone; F41.9 Anxiety disorder, unspecified; K76.9 Liver disease, unspecified; R13.10 Dysphagia, unspecified; T38.0X5A Adverse effect of glucocorticoids and synthetic analogues, initial encounter; R10.13 Epigastric pain; R42 Dizziness and giddiness; Z99.81 Dependence on supplemental oxygen; Z90.710 Acquired absence of both cervix and uterus; Z88.0 Allergy status to penicillin; Z82.49 Family history of ischemic heart disease and other diseases of the circulatory system; Z80.1 Family history of malignant neoplasm of trachea, bronchus and lung; Z90.49 Acquired absence of other specified parts of digestive tract; Z87.891 Personal history of nicotine dependence; Y92.89 Other specified places as the place of occurrence of the external cause
CPT/HCPCS: 36415; 71045; 80048; 80053; 80061; 81001; 82948; 83036; 83605; 83690; 83735; 83880; 84145; 84439; 84443; 85025; 85027; 85610; 85730; 86677; 87040; 87081; 92508; 92616; 93005; 93306; 93880; 94640; 94760; 96365; 96375; 97116; 97161; 97530; 99285; G0378; J1650; J1815; J1940; J1956; J2930; J7120

== ENCOUNTER 2019-07-17 16:28 | Emergency (ER) | payer MEDICARE ==
[~2019-07-17] VITALS: Ht 165.1 cm; Wt 90.9 kg
[~2019-07-17 16:28] MED LIST changes: +CLON0.5T4 PO; +FURO20TA4 PO; +FURO80TA3 PO; +IPRA3AMP9 NEB; +LEVO500T2 PO; +LISI-604 PO; +LORA10TA7 PO; +MAGN400T52 PO; +METF-950 PO; +PRAM0.258 PO; +ZIPR40CA14 PO
[2019-07-17] MEDS ORDERED: pantoprazole 40 MG vial IV ONE (17:10)
[2019-07-17] MEDS ORDERED: normal saline 1000ML IV soln IVB ONE (17:10)
[2019-07-17 17:38] VITALS: BP 163/73
[2019-07-17 18:27] LABS: BASOPHILS % (AUTO) 0.4 % (0-1); EOSINOPHILS # (AUTO) 0.2 X10'3 (0-0.9); EOSINOPHILS % (AUTO) 1.6 % (0-6); LYMPHOCYTES # (AUTO) 0.9 X10'3 (1.1-4.8); LYMPHOCYTES % (AUTO) 8.5 % (21-51); MEAN CORPUSCULAR HEMOGLOBIN 31.5 PG (27.0-31.0); MEAN CORPUSCULAR VOLUME 92.6 FL (78-98); MONOCYTES # (AUTO) 0.5 X10'3 (0-0.9); MONOCYTES % (AUTO) 4.9 % (2-12); NEUTROPHILS # (AUTO) 9.3 X10'3 (1.8-7.7); NEUTROPHILS % (AUTO) 84.6 % (42-75); PLATELET COUNT 288 X10'3 (140-440); RED BLOOD COUNT 4.75 X10'6 (4.20-5.60); RED CELL DISTRIBUTION WIDTH 13.9 % (11.5-14.5)
[2019-07-17 18:40] LABS: ALANINE AMINOTRANSFERASE 84 U/L (12-78); ALBUMIN 3.4 G/DL (3.4-5.0); ALBUMIN/GLOBULIN RATIO 0.9 (1.1-1.5); ALKALINE PHOSPHATASE 173 IU/L (46-116); ANION GAP 9 (8-16); ASPARTATE AMINO TRANSFERASE 91 U/L (10-37); BILIRUBIN,TOTAL 0.9 MG/DL (0.1-1.0); BLOOD UREA NITROGEN 35 MG/DL (7-18); BUN/CREATININE RATIO 31.3 (6.6-38.0); CALCIUM 8.6 MG/DL (8.5-10.1); CHLORIDE 108 MMOL/L (99-107); CREATININE 1.12 MG/DL (0.40-0.90); GLUCOSE 136 MG/DL (70-104); SODIUM 142 MMOL/L (135-145); TOTAL CARBON DIOXIDE 24.8 MMOL/L (24-32); TOTAL PROTEIN 7.1 G/DL (6.4-8.2); eGFR 48 ML/MIN
[2019-07-18 12:53] LABS: C DIFF ANTIGEN NEGATIVE (NEGATIVE); C DIFF SPECIMEN=DIARRHEA? ACCEPTABLE; C DIFFICILE TOXINS A&B NEGATIVE (Neg)
== END 2019-07-17 19:46 | disposition home or self-care (01) ==
LOC: ER 16:28
DX: R19.7 Diarrhea, unspecified (principal); I50.9 Heart failure, unspecified; E78.00 Pure hypercholesterolemia, unspecified; J44.9 Chronic obstructive pulmonary disease, unspecified; E11.9 Type 2 diabetes mellitus without complications; G89.29 Other chronic pain; F41.9 Anxiety disorder, unspecified; Z88.0 Allergy status to penicillin; Z79.84 Long term (current) use of oral hypoglycemic drugs; Z79.899 Other long term (current) drug therapy
CPT/HCPCS: 36415; 80053; 83605; 85025; 87040; 87324; 87449; 96374; 99283; C9113; J7040

== ENCOUNTER 2020-05-21 08:51 | Inpatient (IN) | payer MEDICARE ==
[2020-05-21] VITALS (16 sets, daily range): BP systolic 98–151; BP diastolic 41–82
[~2020-05-21] VITALS: Ht 165.1 cm; Wt 110.2 kg
[~2020-05-21 08:51] MED LIST changes: +ACET-1008 PO; +ASPI-1265 PO; +ATOR80TA PO; +CARV-49 PO; -CLON-527 PO; -DESV50TA20; +FLUT1AER INH; -FURO20TA4 PO; -FURO80TA3 PO; +FURO80TA87 PO; +GABA300C PO; +HYDR-4353 PO; -LEVO500T2 PO; +MELA5TAB12 PO; -METF1000 PO; +MULT-1085 PO; -OXYB5TAB16 PO; +POTA8TAB3 PO; -PRAM0.253 PO; -PRAV40TA3 PO; -ROPI1TAB2 PO; -TRAZ-219 PO; +TRAZ-256 PO; +UMEC62.5 INH; +clindamycin-Cleocin 900mg/D5W 50 ML IV ONE; +famotidine 20mg tablet PO ONE; +ringers solution, lacted 1,000 ML IV SCH; +tranexamic acid 1gm/0.7% sal. 100 ML IV ONE; +vancomycin 1,500 MG in NS 300ml IV soln IV ONE
[2020-05-21 10:54] LABS: BASOPHILS # (AUTO) 0.1 X10'3 (0-0.2); BASOPHILS % (AUTO) 1.3 % (0-1); EOSINOPHILS # (AUTO) 0.5 X10'3 (0-0.9); EOSINOPHILS % (AUTO) 6.1 % (0-6); LYMPHOCYTES # (AUTO) 1.6 X10'3 (1.1-4.8); MEAN CORPUSCULAR HEMOGLOBIN 30.8 PG (27.0-31.0); MEAN CORPUSCULAR HGB CONC 32.2 g/dL (33.0-36.5); MEAN CORPUSCULAR VOLUME 95.7 FL (78-98); MEAN PLATELET VOLUME 9.2 FL (7.4-10.4); MONOCYTES # (AUTO) 0.5 X10'3 (0-0.9); MONOCYTES % (AUTO) 6.7 % (2-12); NEUTROPHILS # (AUTO) 4.9 X10'3 (1.8-7.7); NEUTROPHILS % (AUTO) 64.9 % (42-75); PRE OP HEMOGLOBIN 11.3 g/dL (12.0-16.0); PRE OP PLATELET COUNT 247 X10'3 (140-440); RED BLOOD COUNT 3.66 X10'6 (4.20-5.60); RED CELL DISTRIBUTION WIDTH 14.4 % (11.5-14.5)
[2020-05-21 11:08] LABS: PRE OP PROTIME 10.2 SECONDS (9.0-12.0)
[2020-05-21 11:10] LABS: ALBUMIN 3.4 G/DL (3.4-5.0); ALBUMIN/GLOBULIN RATIO 0.9 (1.1-1.5); ALKALINE PHOSPHATASE 872 IU/L (46-116); BLOOD UREA NITROGEN 42 MG/DL (7-18); BUN/CREATININE RATIO 27.3 (6.6-38.0); CALCIUM 9.7 MG/DL (8.5-10.1); CHLORIDE 104 MMOL/L (99-107); CREATININE 1.54 MG/DL (0.40-0.90); PRE OP ANION GAP 9 (8-16); PRE OP BILIRUB, TOTAL 0.9 MG/DL (0.0-1.0); PRE OP GLUCOSE 116 MG/DL (70-104); PRE OP POTASSIUM 4.5 MMOL/L (3.4-5.1); PRE OP SODIUM 144 MMOL/L (135-145); TOTAL CARBON DIOXIDE 31.1 MMOL/L (24-32); TOTAL PROTEIN 7.2 G/DL (6.4-8.2); eGFR 33 ML/MIN
[2020-05-21 11:12] LABS: PRE OP ALT 202 U/L (30-65); PRE OP AST 192 U/L (10-37)
[2020-05-21 11:13] LABS: HEMOGLOBIN A1C 6.4 % (4.5-6.2)
[2020-05-21] MEDS ORDERED: ROPIVAcaine 0.5% (5mg/ml) 30ml vial ONE ×2 (11:54→12:06)
[2020-05-21] MEDS ORDERED: fentaNYL/PF 50MCG/1 ML 2ML syringe ONE (12:04)
[2020-05-21] MEDS ORDERED: midazolam 2 mg/2 ml injection ONE (12:04)
[2020-05-21] MEDS ORDERED: propofol inj 20 ML IV ONE (12:05)
[2020-05-21] MEDS ORDERED: ePHEDrine 50MG/ML INJ. ONE (12:21)
[2020-05-21] MEDS ORDERED: sevoflurane 250ml liquid IH ONE (12:21)
[2020-05-21] MEDS ORDERED: ROPIVAcaine 0.2%/PF PUMP/bolus 550 ML INTERSCALE SCH (13:45)
[2020-05-21] MEDS ORDERED: ROPIVAcaine 0.2% (10 MG/5 ML) BOLUS INJECTION INTERSCALE PRN (13:45)
[2020-05-21] MEDS ORDERED: ondansetron/PF 4mg/2ml inj IV PRN ×2 (13:45→15:05)
[2020-05-21] MEDS ORDERED: morphine 2 MG/ML inj. syringe IV PRN (13:45)
[2020-05-21] MEDS ORDERED: meperidine/PF 25mg/ml syringe IV PRN ×3 (13:45)
[2020-05-21] MEDS ORDERED: proCHLORperazine 10 MG/2 ml inj IV PRN (13:45)
[2020-05-21] MEDS ORDERED: ringers solution, lacted 1,000 ML IV SCH (13:45)
[2020-05-21] MEDS ORDERED: morphine 4 MG/ML inj SYRINge IV PRN (13:45)
[2020-05-21] MEDS ORDERED: HYDROcodone/acetaminophen 10/325mg tab PO PRN (15:05)
[2020-05-21] MEDS ORDERED: HYDROmorphone 1 mg/ml syringe IV PRN (15:05)
[2020-05-21] MEDS ORDERED: oxyCODONE IR 5mg (immed. release) tablet PO PRN (15:05)
[2020-05-21] MEDS ORDERED: acetaminophen 325mg tablet PO PRN (15:05)
[2020-05-21] MEDS ORDERED: HYDROmorphone inj. 0.5 MG/0.5 ML DISP.SYRIN IV PRN (15:05)
[2020-05-21] MEDS ORDERED: magnesium hydroxide 30ml (MOM) UD suspension PO PRN (15:05)
--- NOTE | 2020-05-21 15:08 | NUR ---
Received from OR via , accompanied by Anesthesiologist DR FINENGAN and report given by Anesthesiolgist. AWAKENS TO VOICE. VITALS STABLE. DRESSING DI. NATAN PAIN. RUE IN SIMPLE SLING. FINGERS WARM AND PINK.
[2020-05-21] MEDS ORDERED: albuterol 2.5 MG/3 ML nebule NEB PRN (15:30)
[2020-05-21] MEDS ORDERED: ipratropium 0.5 MG/2.5ML nebule IH PRN (15:35)
--- NOTE | 2020-05-21 16:18 | NUR ---
Report called to receiving nurse. Transferred via BED Belongings . Special Issues communicated to receiving nurse. AWAKE AND ORIENTED. VITALS STABLE. DRESSING DI. NATAN PAIN. TO ORTHO RM [id number] AT THIS TIME.
--- NOTE | 2020-05-21 18:18 | NUR ---
Problems reprioritized. Patient report given, questions answered & plan of care reviewed with Lyubov.
--- NOTE | 2020-05-21 18:30 | NUR ---
Patient in room [facility]TH[facility] 4009. I have received report from TUNG KING and had the opportunity to ask questions and assume patient care.
[2020-05-21] MEDS: potassium cl 20mEq in 1/2 NS 1,000 ML IV SCH ×2 (19:56→23:48)
[2020-05-21] MEDS ORDERED: clonazePAM 0.5mg tablet PO PRN (20:00)
[2020-05-21] MEDS ORDERED: vancomycin/NS 1 GM ADD-VANTAGE 250 ML IV SCH (20:00)
[2020-05-21] MEDS: ceFAZolin 1GM/D5W- ADD-VANTAGE 50 ML IV SCH ×2 (20:14→23:43)
[2020-05-21] MEDS: budesonide 0.5mg/2ml UD nebule IH SCH (20:34)
[2020-05-21] MEDS: ipratropium/albuterol 3ml nebule NEB SCH ×2 (20:35→23:45)
--- NOTE | 2020-05-21 20:45 | NUR ---
Patient report given, questions answered & plan of care reviewed with ARNOLD KING.
[2020-05-21] MEDS ORDERED: lisinopril 5mg tablet PO SCH (21:00)
[2020-05-21] MEDS ORDERED: sennosides 8.6mg tablet PO SCH (21:00)
[2020-05-21] MEDS ORDERED: traZODone 50mg tablet PO SCH (21:00)
[2020-05-21] MEDS ORDERED: ziprasidone 20mg capsule PO SCH (21:00)
[2020-05-21] MEDS ORDERED: pramipexole 0.25mg tablet PO SCH ×2 (21:00)
[2020-05-21] MEDS ORDERED: Melatonin 3mg tablet PO SCH (21:00)
[2020-05-21] MEDS: metFORMIN 500mg tablet PO SCH (22:56)
[2020-05-21] MEDS: gabapentin 300mg capsule PO SCH (22:58)
[2020-05-21] MEDS: carvedilol 6.25mg tablet PO SCH (22:59)
[2020-05-21] MEDS: acetaminophen 325mg tablet PO SCH (23:05)
[2020-05-21] MEDS: oxyCODONE IR 5mg (immed. release) tablet PO PRN (23:38)
[2020-05-22] MEDS ORDERED: vancomycin/NS 1 GM ADD-VANTAGE 250 ML IV ONE (02:00)
[2020-05-22] MEDS: acetaminophen 325mg tablet PO SCH ×2 (02:00→09:11)
--- NOTE | 2020-05-22 05:14 | NUR ---
PT IS CONFUSED AT BASELINE. LIVES AT [facility]. PT IS UNABLE TO USE CALL LIGHT. ALSO UNABLE TO COMPREHEND OR USE ON-qUE BOLUS PUMP. SHE ALSO PULLED AT AND REMOVED PARTIAL DRESSING ON CANNULA ENTRY SITE AT BASE OF NECK. PT PULLED OFF HER SHOULDER WRAP, STERILE DRESSING, AND WICK. TOTAL LINEN CHANGE. RN SANITIZED THE INCISION SITE WITH ALCOHOL SWABS AND REPLACED ISLAND DRESSING. ADRIANA STILL INTACT.
[2020-05-22] MEDS: oxyCODONE IR 5mg (immed. release) tablet PO PRN ×2 (05:41→11:01)
[2020-05-22 06:00] VITALS: BP 153/74
--- NOTE | 2020-05-22 06:14 | NUR ---
REPORT GIVEN TO CHRISTINE RUBY.
--- NOTE | 2020-05-22 06:23 | NUR ---
Patient in room [facility]TH[facility] 4009. I have received report from Linnea and had the opportunity to ask questions and assume patient care.
[2020-05-22] MEDS ORDERED: famotidine 20mg tablet PO SCH (08:00)
[2020-05-22] MEDS ORDERED: clopidogrel 75mg tablet PO SCH (08:00)
[2020-05-22] MEDS ORDERED: furosemide 40mg tablet PO SCH (08:00)
[2020-05-22] MEDS ORDERED: multivitamins, therapeutics tablet PO SCH (08:00)
[2020-05-22] MEDS ORDERED: magnesium oxide 400mg tablet PO SCH (08:00)
[2020-05-22] MEDS ORDERED: potassium chloride 8mEq ER tablet PO SCH (08:00)
[2020-05-22] MEDS ORDERED: atorvastatin 20mg tablet PO SCH (08:00)
[2020-05-22] MEDS ORDERED: loratadine 10mg tablet PO SCH (08:00)
[2020-05-22] MEDS ORDERED: sertraline 25mg tablet PO SCH (08:00)
[2020-05-22] MEDS ORDERED: aspirin 81mg tab.chew PO SCH (08:00)
[2020-05-22] MEDS: ipratropium/albuterol 3ml nebule NEB SCH ×2 (08:29→11:41)
[2020-05-22] MEDS: budesonide 0.5mg/2ml UD nebule IH SCH (08:29)
[2020-05-22] MEDS ORDERED: aspirin 325mg tablet PO SCH (08:30)
[2020-05-22] MEDS: gabapentin 300mg capsule PO SCH (09:10)
[2020-05-22] MEDS: metFORMIN 500mg tablet PO SCH (09:11)
[2020-05-22] MEDS: carvedilol 6.25mg tablet PO SCH (09:11)
[2020-05-22 10:17] LABS: ANION GAP 10 (8-16); CHLORIDE 107 MMOL/L (99-107); POTASSIUM 4.3 MMOL/L (3.5-5.1); SODIUM 141 MMOL/L (135-145); TOTAL CARBON DIOXIDE 24.3 MMOL/L (24-32)
[2020-05-22 10:46] LABS: HEMATOCRIT 36.5 % (35.0-45.0); HEMOGLOBIN 11.7 g/dl (12.0-16.0); MEAN CORPUSCULAR HEMOGLOBIN 30.7 PG (27.0-31.0); MEAN CORPUSCULAR HGB CONC 32.1 g/dL (33.0-36.5); MEAN CORPUSCULAR VOLUME 95.5 FL (78-98); MEAN PLATELET VOLUME 9.2 FL (7.4-10.4); RED BLOOD COUNT 3.82 X10'6 (4.20-5.60); RED CELL DISTRIBUTION WIDTH 14.1 % (11.5-14.5); WHITE BLOOD COUNT 13.7 X10'3 (4.5-11.0)
[2020-05-22 10:51] LABS: TOTAL CELLS COUNTED 100
[2020-05-22 10:52] LABS: PLATELET ESTIMATE NORMAL
[2020-05-22] MEDS: potassium cl 20mEq in 1/2 NS 1,000 ML IV SCH (12:29)
--- NOTE | 2020-05-22 14:13 | NUR ---
Noted pt s/p R reverse TSA from humerus fx. Currently AOx1/confused and not appropriate for high protein ed at this time. Will monitor for additional protein needs post-op. Addendum: 05/22/20 at [address] Amended: Links added.
[2020-05-23] MEDS ORDERED: acetaminophen 325mg tablet PO PRN (15:05)
== END 2020-05-22 14:35 | DRG 483 ==
LOC: PAS 08:51 → EDSTATUS 11:30 → ORTHO 4S 15:03
PROVIDERS: ADMIT Orthopaedic Surgery; ATTEND Orthopaedic Surgery
PROC: 0LS30ZZ Reposition Right Upper Arm Tendon, Open Approach (ICD-10-PCS; 2020-05-21)
PROC: 3E0T3BZ Introduction of Anesthetic Agent into Peripheral Nerves and Plexi, Percutaneous Approach (ICD-10-PCS; 2020-05-21)
PROC: 0RRJ00Z Replacement of Right Shoulder Joint with Reverse Ball and Socket Synthetic Substitute, Open Approach (ICD-10-PCS; principal; 2020-05-21 12:21)
DX: S42.201A Unspecified fracture of upper end of right humerus, initial encounter for closed fracture (principal); J96.21 Acute and chronic respiratory failure with hypoxia; D62 Acute posthemorrhagic anemia; E11.9 Type 2 diabetes mellitus without complications; D64.9 Anemia, unspecified; E78.5 Hyperlipidemia, unspecified; G25.81 Restless legs syndrome; I11.0 Hypertensive heart disease with heart failure; S43.004A Unspecified dislocation of right shoulder joint, initial encounter; F32.9 Major depressive disorder, single episode, unspecified; G43.909 Migraine, unspecified, not intractable, without status migrainosus; X58.XXXA Exposure to other specified factors, initial encounter; G47.30 Sleep apnea, unspecified; K21.9 Gastro-esophageal reflux disease without esophagitis; I25.10 Atherosclerotic heart disease of native coronary artery without angina pectoris; I50.9 Heart failure, unspecified; J44.9 Chronic obstructive pulmonary disease, unspecified; Z95.1 Presence of aortocoronary bypass graft; Z99.81 Dependence on supplemental oxygen; Z79.899 Other long term (current) drug therapy; Z79.82 Long term (current) use of aspirin; Y93.89 Activity, other specified; Y92.89 Other specified places as the place of occurrence of the external cause; Y99.8 Other external cause status
CPT/HCPCS: 36415; 76000; 76937; 80051; 80053; 82948; 83036; 85007; 85025; 85610; 85730; 87081; 94640; 94760; 97110; 97161; 97530; A4565; A4618; A7000; C1776; G0378; J0690; J2250; J2704; J2795; J3010; J3370; J3480; J3490; J7120; J7626